=== PATIENT | female | born 1960 | race Caucasian/White ===

== ENCOUNTER 2017-08-26 12:25 | Emergency (ER) | payer SELFPAY ==
[~2017-08-26] VITALS: Ht 157.5 cm; Wt 77.0 kg
[2017-08-26 12:38] VITALS: BP 197/90
[2017-08-26] MEDS ORDERED: ASPIRIN 325MG EC TABLET PO ONE (12:45)
[2017-08-26] MEDS ORDERED: NITROGLYCERIN OINT 1GM/INCH UDPKT TD ONE (12:45)
== END 2017-08-26 17:52 | disposition left against medical advice (07) ==
LOC: ER 12:25
DX: R07.2 Precordial pain (principal)
CPT/HCPCS: 93005; 99283; 99285